=== PATIENT | male | born 1980 | race Hispanic/Latino ===

== ENCOUNTER 2020-12-30 08:54 | Emergency (ER) | payer OTHER, SELFPAY ==
[2020-12-30 09:08] VITALS: BP 138/92; PULSE 60; RESP 18; TEMP 36.4; O2SAT 100
--- NOTE | 2020-12-30 09:12 | ED.SKABFB ---
HPI - Skin/Abscess/Foreign Bdy General Chief complaint: Skin/Abscess/Foreign Body Stated complaint: Rash Time Seen by Provider: 12/30/20 09:13 Source: patient Mode of arrival: ambulatory Limitations: no limitations History of Present Illness HPI narrative: John Paul Saeed is a 40 yo male with no PMH who comes to [facility] with rash on bilateral arms and groin, right ear that started 3 days ago after working in the yard on the weekend. Has tried using [id number] IV medication with limited success. It is pruritic, some vesicles on both arms Related Data Allergies Allergy/AdvReac Type Severity Reaction Status Date / Time No Known Allergies Allergy Verified 12/30/20 09:12 Review of Systems Review of Systems: Narrative: CONSTITUTIONAL: Denies fever, chills, sweats. EYES: Denies visual changes, redness, discharge. ENT: Denies rhinorrhea, congestion, sore throat, otalgia. CARDIOVASCULAR: Denies chest pain, palpitations, edema. RESPIRATORY: Denies dyspnea, wheezing, cough GASTROINTESTINAL: Denies abdominal pain, nausea, vomiting, diarrhea. GENITOURINARY: Denies dysuria, hematuria, abnormal discharge SKIN: His bilateral arm rash, groin, right ear with itching NEUROLOGIC: Denies numbness, or focal weakness. PSYCHIATRIC: Denies anxiety or depression. PMFSH Past Medical History Medical History (Updated 12/30/20 @ 09:40 by Tiffani Alonzo CNP) No acute medical problems Family History Family History Other BPH (benign prostatic hyperplasia) Social History Social History (Updated 12/30/20 @ 09:22 by Tiffani Alonzo CNP) Smoking status: Never smoker Alcohol intake: current Gender identity (if verbalized by the patient): Male Comments At time of signature, I agree with nursing past medical, surgical, social and family history. There is no relevant family history pertinent to the presenting complaint. Blood pressure elevated at this visit to follow-up with PCP within the week Exam Narrative: Exam Narrative: GENERAL: This is a well-nourished, well-developed patient, in mild distress. HEAD: normocephalic, atraumatic. EYES: Sclera clear/white. Vision is grossly intact. EARS: External ears normal,. Hearing grossly intact. NOSE: External nose normal without nasal discharge, nares without redness, no rhinorrhea. THROAT: Mucous membranes moist, NECK: Neck supple, CARDIOVASCULAR: Regular rate and rhythm without murmurs, gallops, or rubs. RESPIRATORY: Clear to auscultation. Breath sounds equal bilaterally. No wheezes, rales, or rhonchi. GASTROINTESTINAL: Abdomen soft, SKIN: warm, intact with erythematous vesicular rash that is coalesced on the right antecubital area individual lesions on the forearms the left and right and groin with papules on right ear also NEURO: awake, alert, and oriented to person, place and time. There were no obvious focal neurologic abnormalities. Steady gait EXTREMITIES: Normal range of motion. BACK: Nontender without deformity Course Course Emergency Course: Patient comes to [facility] with bilateral arms and groin involved in erythematous rash that started 3 days ago Given Depo-Medrol 80 mg on site Discharge a Medrol dose pack, Pepcid, Benadryl Vital Signs Vital signs: Vital Signs Temperature 97.5 F L 12/30/20 09:08 Pulse Rate 60 12/30/20 09:08 Respiratory Rate 18 12/30/20 09:08 Blood Pressure 138/92 H 12/30/20 09:08 Pulse Oximetry 100 12/30/20 09:08 Temperature 97.5 F L 12/30/20 09:08 Pulse Rate 60 12/30/20 09:08 Respiratory Rate 18 12/30/20 09:08 Blood Pressure 138/92 H 12/30/20 09:08 Pulse Oximetry 100 12/30/20 09:08 MDM - Skin/Abscess/Foreign Bdy Differential Diagnosis Differential diagnosis: Likely abscess of skin or subcutaneous tissue, cellulitis, contact dermatitis and other Critical Care Time Critical Care Time Critical Care Time: No Discharge Plan Discharge
[2020-12-30] MEDS: methylPREDNISolone ACETATE 80 MG/ML VIAL IM (09:32)
== END 2020-12-30 09:53 | disposition home or self-care (01) ==
PROVIDERS: Emergency Provider Nurse Practitioner
DX: L23.7 Allergic contact dermatitis due to plants, except food (principal)
CPT/HCPCS: 96372; 99203; G0463; J1040